=== PATIENT | male | born 1975 | race Caucasian/White ===

== ENCOUNTER 2017-07-14 17:16 | Emergency (ER) | payer SELFPAY ==
[2017-07-14] MEDS ORDERED: Ibuprofen 800 MG TAB ONE (17:40)
== END 2017-07-14 17:50 | disposition home or self-care (01) ==
LOC: ERS 17:16
DX: L72.9 Follicular cyst of the skin and subcutaneous tissue, unspecified (principal); F32.9 Major depressive disorder, single episode, unspecified; F17.210 Nicotine dependence, cigarettes, uncomplicated
CPT/HCPCS: 10060; 87070; 87205

== ENCOUNTER 2018-05-26 12:55 | Emergency (ER) | payer SELFPAY ==
[~2018-05-26 12:55] MED LIST: ISOVUE-370 76%-LOCM 1 ML ONE
[2018-05-26] MEDS ORDERED: Ketorolac Tromethamine 30 MG/ML VIAL ONE (13:48)
[2018-05-26 13:56] LABS: #Basophils 0.1 thou/uL (0.0-0.2); #Eosinphils 0.1 thou/uL (0.0-0.7); #Lymphocytes 2.7 thou/uL (1.20-3.40); #Monocytes 0.7 thou/uL (0.11-0.59); #Neutrophils 7.1 thou/uL (1.40-6.50); %Basophils 0.8 % (0.0-1.0); %Eosinophils 0.6 % (0.0-10.0); %Lymphocytes 25.2 % (21.0-51.0); %Monocytes 6.6 % (0.0-10.0); %Neutrophils 66.9 % (42.0-75.0); Hemoglobin 15.3 g/dL (14.0-18.0); Mean Corpuscular HGB CONC 32.1 g/dL (32.0-36.0); Mean Corpuscular Hemoglobin 30.5 pg (27.0-31.0); Mean Corpuscular Volume 95.1 fL (78.0-98.0); Mean Platelet Volume 6.6 fL (7.4-10.4); Platelet Count 268 thou/uL (130-400); RBC Distribution Width 12.7 % (11.5-14.5); Red Blood Cell (RBC) Count 5.02 mill/uL (4.70-6.10); White Blood Cell (WBC) Count 10.6 thou/uL (4.8-10.8)
[2018-05-26 14:19] LABS: ALT (SGPT) 32 U/L (8-55); AST (SGOT) 16 U/L (5-34); Albumin 4.3 g/dL (3.5-5.0); Alkaline Phosphatase 89 U/L (40-150); Anion Gap 12 mmol/L (10-20); BUN (Urea Nitrogen) 12 mg/dL (8.9-20.6); Bilirubin, Total 0.3 mg/dL (0.2-1.2); Calc. Creatinine Clearance 0 mL/min (70-130); Calcium 9.5 mg/dL (7.8-10.44); Carbon Dioxide 23 mmol/L (22-29); Chloride 106 mmol/L (98-107); Estimated GFR-MDRD Greater than 90; Globulin 2.8 g/dL (2.4-3.5); Glucose 146 mg/dL (70-105); Potassium 4.2 mmol/L (3.5-5.1); Protein, Total 7.1 g/dL (6.0-8.3); Sodium 137 mmol/L (136-145)
--- NOTE | 2018-05-26 14:35 | CT ---
Exam: CT face with contrast HISTORY: Dental pain in the right upper mouth. COMPARISON: None TECHNIQUE: Multiple contiguous axial images were obtained and a CT of the face with contrast. Sagitta l and coronal reformats were performed. FINDINGS: Upper lip soft tissue swelling is seen. No focal fluid collection is identified. The globes and retr obulbar soft tissues are unremarkable. No facial fractures are identified. Numerous dental caries are seen. Mucous retention cysts are seen in the right maxillary sinus. The other paranasal sinuses are well ae rated.. The mastoid air cells are hypoplastic. Visualized intracranial structures are unremarkable. IMPRESSION: No evidence of facial abscess.
[2018-05-26] MEDS ORDERED: Acetaminophen 500 MG TAB ONE (15:14)
== END 2018-05-26 15:23 | disposition home or self-care (01) ==
LOC: ERS 12:55
DX: L03.211 Cellulitis of face (principal); K02.9 Dental caries, unspecified; F17.210 Nicotine dependence, cigarettes, uncomplicated; F32.9 Major depressive disorder, single episode, unspecified; I10 Essential (primary) hypertension; Z79.899 Other long term (current) drug therapy
CPT/HCPCS: 36415; 70487; 80053; 85025; 96374; J1885; Q9966

== ENCOUNTER 2019-07-22 12:56 | Emergency (ER) | payer OTHER, SELFPAY | END 2019-07-22 13:50 | disposition home or self-care (01) | LOC: ERS 12:56 | DX: M79.10 Myalgia, unspecified site (principal); R11.0 Nausea; I10 Essential (primary) hypertension; Z20.828 Contact with and (suspected) exposure to other viral communicable diseases; F32.9 Major depressive disorder, single episode, unspecified; F17.210 Nicotine dependence, cigarettes, uncomplicated | CPT/HCPCS: 87635; 99283; U0003 ==

== ENCOUNTER 2019-08-03 20:55 | Inpatient (IN) | payer OTHER, SELFPAY ==
[2019-08-03] MEDS ORDERED: Nitroglycerin 2% Ointment 1 INCH/1 GM Packet ONE (21:16)
[2019-08-03] MEDS ORDERED: Aspirin Chewable 81 MG TAB ONE (21:16)
[2019-08-03 21:20] LABS: #Basophils 0.2 thou/uL (0.0-0.2); #Eosinphils 0.1 thou/uL (0.0-0.7); #Lymphocytes 3.2 thou/uL (1.20-3.40); #Monocytes 0.6 thou/uL (0.11-0.59); #Neutrophils 7.9 thou/uL (1.40-6.50); %Basophils 1.3 % (0.0-1.0); %Eosinophils 1.1 % (0.0-10.0); %Lymphocytes 27.1 % (21.0-51.0); %Neutrophils 65.5 % (42.0-75.0); Hemoglobin 17.3 g/dL (14.0-18.0); Mean Corpuscular HGB CONC 35.2 g/dL (32.0-36.0); Mean Corpuscular Hemoglobin 32.7 pg (27.0-31.0); Mean Corpuscular Volume 92.8 fL (78.0-98.0); Mean Platelet Volume 7.2 fL (7.4-10.4); Platelet Count 276 thou/uL (130-400); RBC Distribution Width 12.3 % (11.5-14.5); Red Blood Cell (RBC) Count 5.28 mill/uL (4.70-6.10)
[2019-08-03 21:58] LABS: ALT (SGPT) 37 U/L (8-55); AST (SGOT) 22 U/L (5-34); Albumin 4.4 g/dL (3.5-5.0); Alkaline Phosphatase 95 U/L (40-110); Anion Gap 14 mmol/L (10-20); BUN (Urea Nitrogen) 15 mg/dL (8.9-20.6); Bilirubin, Total 0.3 mg/dL (0.2-1.2); Calc. Creatinine Clearance 0 mL/min (70-130); Calcium 9.2 mg/dL (7.8-10.44); Carbon Dioxide 24 mmol/L (22-29); Chloride 104 mmol/L (98-107); Estimated GFR-MDRD 67; Globulin 3.7 g/dL (2.4-3.5); Glucose 153 mg/dL (70-105); Lipase 33 U/L (8-78); Potassium 4.2 mmol/L (3.5-5.1); Protein, Total 8.1 g/dL (6.0-8.3); Sodium 138 mmol/L (136-145)
[2019-08-04 01:31] LABS: Troponin I 0.022 ng/mL (< 0.028)
[2019-08-04] MEDS ORDERED: Acetaminophen 650 MG Suppository PR PRN (02:16)
[2019-08-04] MEDS ORDERED: Sodium Chloride 0.9% 1,000 ML IV SCH (02:30)
[2019-08-04] MEDS ORDERED: Morphine 2 MG/ML SYRINGE SLOW IVP SCH (02:30)
--- NOTE | 2019-08-04 03:31 | HP ---
TIME OF ASSESSMENT: 1100 hours. PRIMARY CARE PHYSICIAN: [facility]. CHIEF COMPLAINT: Chest pain. HISTORY OF PRESENT ILLNESS: Mr. Keller is a 43-year-old gentleman who presents to the emergency department due to concerns over chest "pressure feeling as though someone is sitting on my chest." The patient states this discomfort has been there since the beginning of the day yesterday. He denies noting if any worse with or without exertion. States it had been essentially constant throughout the entire day and persisted today. While he was at home earlier this evening, he states he suddenly had increased chest pressure, rating it a 6/10 in severity. He states he developed associated diaphoresis. Denies having any other symptoms. He went for a walk and initially felt better, however, suddenly he began to have persistence of vomiting. The vomiting settled and the pain has eased to a 3/10 in severity. He was encouraged by his to come into the ED for assessment. The patient states he has felt "off" since a week ago. States he came into the emergency department, but did not undergo any EKG workup. States at that time, he was experiencing the chest pressure, but it was not severe nor constant as it was today. States he was tested for COVID and discharged home. He has continued to feel "off" since then. He recalls experiencing numbness and tingling in the left hand earlier this evening when the pain had worsened, this has fully resolved. EMERGENCY DEPARTMENT COURSE: In the emergency department, he underwent an EKG that showed sinus tachycardia with a heart rate of 110 and the presence of a complete left bundle-branch block. It is unclear if he has had a left bundle-branch block performed as we do not have any prior EKGs to compare to. He was given 324 mg of aspirin as well as 1 L of normal saline and 1 inch of Nitro-Bid. His blood pressure was significantly elevated in the ED. On initial presentation, his blood pressure was 187/114 and last blood pressure checked at 0043, it was 163/110. Of note, the patient states that he has been off his blood pressure medications (he takes lisinopril 10 mg p.o. daily) for quite some time and just recently restarted it one week ago. States it did help him feel slightly better. LABORATORY STUDIES: Done in the ED showed a white count of 12, hemoglobin 17.3, hematocrit 49, platelets 276. Sodium 138, potassium 4.2, BUN 15, creatinine 1.18, GFR 67, glucose 153. LFTs unremarkable. Lipase normal. Initial troponin negative. BNP 132.3. Per ED, a chest x-ray was done and showed no acute changes. PAST MEDICAL HISTORY: 1. Hypertension. 2. Pancreatitis. 3. Remote history of heavy alcohol consumption. 4. Tobacco use. 5. Depression. PAST SURGICAL HISTORY: None. FAMILY HISTORY: Noncontributory. SOCIAL HISTORY: The patient states he currently smokes cigarettes. When he is very stressed, he tends to smoke up to 1 pack of cigarettes per day. Normally, he will smoke a half a pack. Reports occasional alcohol consumption. Denies any illicit drug use except he rarely smokes marijuana. PHYSICAL EXAMINATION: GENERAL: The patient appears well developed, well nourished, is in no acute distress. VITAL SIGNS: Temperature 98.9, pulse is 97, blood pressure 163/110, respirations 16, O2 saturation 97% on room air. HEENT: Normocephalic and atraumatic. Pupils are equal, round, and reactive to light. Sclerae are anicteric. Oropharynx is clear. NECK: Supple without lymphadenopathy. LUNGS: Clear to auscultation bilaterally without any wheezes, rales, or rhonchi. CARDIAC: Regular rate and rhythm without audible murmurs, rubs, or gallops. ABDOMEN: Soft, nontender, nondistended. Normoactive bowel sounds present. No guarding or rigidity. No renal angle tenderness. EXTREMITIES: No lower leg swelling or edema. NEUROLOGIC: Alert and oriented x3. SKIN: Warm and dry. INVESTIGATIONS: As best mentioned above in HPI. IMPRESSION AND PLAN: Mr. Keller is a 43-year-old gentleman who is being admitted for management of the following. 1. Acute coronary syndrome rule out. The patient reports persistent discomfort, rating 3/10 in severity. We will give morphine which should also help improve his blood pressure somewhat. Also add on nitroglycerin paste 1 inch q.8 hours. We will repeat EKG to assess for any dynamic changes. The patient will be admitted to telemetry for continuous cardiac monitoring. We will continue to trend troponins. We will continue daily aspirin. Echocardiogram ordered. If troponins remain negative, we will plan for stress test in the morning. Otherwise, we will add magnesium and TSH. Check lipid panel with morning labs. We will obtain a urine drug screen. We will keep patient n.p.o. 2. Hypertension. As mentioned above, the patient will be on nitroglycerin paste 1 inch q.8 hours, which should help improve his blood pressure. Continue to monitor blood pressure and resume home medications. 3. Gastrointestinal prophylaxis with famotidine. 4. Code status is full. His surrogate decision maker is his , Marlene Keller. 5. Deep venous thrombosis prophylaxis with mechanical SCDs. The patient's case discussed with Dr. Tate who agrees upon care as described above. Job ID: [id number]
[2019-08-04 04:31] LABS: #Basophils 0.1 thou/uL (0.0-0.2); #Eosinphils 0.2 thou/uL (0.0-0.7); #Lymphocytes 3.7 thou/uL (1.20-3.40); #Monocytes 0.5 thou/uL (0.11-0.59); #Neutrophils 4.7 thou/uL (1.40-6.50); %Basophils 0.8 % (0.0-1.0); %Eosinophils 1.7 % (0.0-10.0); %Lymphocytes 40.1 % (21.0-51.0); %Monocytes 5.6 % (0.0-10.0); %Neutrophils 51.8 % (42.0-75.0); Hemoglobin 15.9 g/dL (14.0-18.0); Mean Corpuscular HGB CONC 34.8 g/dL (32.0-36.0); Mean Corpuscular Hemoglobin 32.6 pg (27.0-31.0); Mean Corpuscular Volume 93.9 fL (78.0-98.0); Mean Platelet Volume 7.1 fL (7.4-10.4); Platelet Count 233 thou/uL (130-400); RBC Distribution Width 12.3 % (11.5-14.5); Red Blood Cell (RBC) Count 4.88 mill/uL (4.70-6.10); White Blood Cell (WBC) Count 9.1 thou/uL (4.8-10.8)
[2019-08-04 05:27] LABS: Anion Gap 11 mmol/L (10-20); BUN (Urea Nitrogen) 14 mg/dL (8.9-20.6); Calc. Creatinine Clearance 174 mL/min (70-130); Calcium 8.9 mg/dL (7.8-10.44); Carbon Dioxide 24 mmol/L (22-29); Cardiac Risk 7.2 (Less than 4.5); Chloride 107 mmol/L (98-107); Cholesterol 229 mg/dl (< 200 Desired); Estimated GFR-MDRD 88; Glucose 122 mg/dL (70-105); HDL Cholesterol 32 mg/dL (>60 Neg Risk); LDL Cholesterol, Calculated 131 mg/dL; Sodium 138 mmol/L (136-145); Triglycerides 332 mg/dL (Less than 150)
[2019-08-04 05:43] LABS: CKMB 2.6 ng/mL (0-6.6)
[2019-08-04] MEDS ORDERED: Nitroglycerin 2% Ointment 1 INCH/1 GM Packet TOP SCH (06:00)
[2019-08-04 06:32] LABS: Amphetamine Not Detected (NotDetected); Barbiturates Screen Not Detected (NotDetected); Benzodiazepine Screen Not Detected (NotDetected); Cocaine Metabolite Screen Not Detected (NotDetected); Medtox Control Line Valid? VALID (VALID); Medtox Reader # READER 4; Methadone Not Detected (NotDetected); Methamphetamine Not Detected (NotDetected); Opiate Screen Detected (NotDetected); Oxycodone Screen Not Detected (NotDetected); Phencyclidine (PCP) Not Detected (NotDetected); THC/Cannabinoid Screen Not Detected (NotDetected); Tricyclic Screen Not Detected (NotDetected)
--- NOTE | 2019-08-04 07:49 | RAD ---
PORTABLE CHEST: History: Patient was tested for Covid two weeks ago and has been becoming increasingly short of breat h. Comparison: 04-25-16 FINDINGS: Heart size appears borderline enlarged considering the lordotic technique. Lungs are clear of any inf iltrative process. No signs of failure. IMPRESSION: Borderline heart size. POS: [facility]
[2019-08-04] MEDS: Aspirin 325 mg Enteric Coated Tablet PO SCH (09:11)
[2019-08-04] MEDS: Famotidine/PF 20 mg/2ml Vial SLOW IVP SCH ×2 (09:11→09:18)
[2019-08-04] MEDS ORDERED: Iopamidol 370 76% 100 ML VIAL ONE (09:18)
[2019-08-04] MEDS: Acetaminophen 325 MG TAB PO PRN (09:29)
[2019-08-04] MEDS: Morphine 2 MG/ML SYRINGE SLOW IVP PRN (10:52)
[2019-08-04] MEDS ORDERED: Nitroglycerin 0.4 MG TAB (25 Tab Bottle) PO PRN (11:38)
[2019-08-04] MEDS ORDERED: Lisinopril 10 MG TAB PO SCH (13:00)
--- NOTE | 2019-08-04 13:06 | CON ---
DATE OF CONSULTATION: HISTORY OF PRESENT ILLNESS: The patient is a 43-year-old gentleman, who presented for evaluation of chest discomfort and dyspnea. The patient has previous history of hypertension. The patient states he has been out of his medications recently. He went to the emergency room a few weeks ago being thought for evaluation of dyspnea. He was noted to be markedly hypertensive. He was restarted on his lisinopril. The patient states states a few days ago he started having midsternal chest discomfort. This has been a fairly persistent discomfort for the past three days. He came to the emergency room and is noted to be markedly hypertensive. The patient also reports being mildly dyspneic. The patient denies having PND or orthopnea. PAST MEDICAL HISTORY: 1. Hypertension. 2. COPD. 3. Pancreatitis. PAST SURGICAL HISTORY: None. MEDICATIONS: Lisinopril 10 daily. SOCIAL HISTORY: Long history of tobacco abuse. ALLERGIES: HE HAS NO KNOWN DRUG ALLERGIES. REVIEW OF SYSTEMS: Ten-point system, otherwise unremarkable. PHYSICAL EXAMINATION: GENERAL: This is an obese gentleman, in mild distress. VITAL SIGNS: Blood pressure 144/90. NECK: Showed no jugular venous distention. LUNGS: Clear to auscultation. HEART: Regular rate and rhythm. Normal S1 and S2. No murmurs. ABDOMEN: Nondistended. EXTREMITIES: Showed no edema. VASCULAR: Radial pulses are 2+. LABORATORY DATA: Sodium 138, potassium 4.0, chloride 107, bicarbonate 24, BUN 14, creatinine 0.94, and glucose 122. Troponin 0.04. White blood cell count is 9.1 , hemoglobin 15.9, hematocrit 45.8, and platelets are 233. IMAGING DATA: EKG sinus tachycardia with a left bundle-branch block. IMPRESSION: 1. Chest pain. 2. Malignant hypertension. 3. Left bundle-branch block. 4. Tobacco abuse. 5. History of ethanol abuse. 6. Obesity. PLAN: This gentleman presents with chest pain and is markedly hypertensive. His documented systolic blood pressure over 200. The patient does have a left bundle-branch block. He will need to undergo an echocardiogram and adenosine stress test to evaluate for ischemia. The patient needs to have improved control of his hypertension and close followup. The patient had been highly advised to discontinue smoking. We will follow this patient with you through his hospitalization. Job ID: [id number] [facility]
[2019-08-04] MEDS ORDERED: Communication Order-Pharmacy FS SCH (13:15)
[2019-08-04] MEDS ORDERED: Diazepam 5 MG TAB PO SCH (13:45)
[2019-08-04] MEDS ORDERED: Midazolam HCl 2 mg/2 ml Vial ONE (15:06)
[2019-08-04] MEDS ORDERED: Sodium Chloride 0.9% 200 ML IV PRN (15:23)
[2019-08-04] MEDS ORDERED: Nitroglycerin 0.4 MG TAB (25 Tab Bottle) SL PRN (15:23)
[2019-08-04] MEDS: Carvedilol 3.125 MG TAB PO SCH (16:34)
[2019-08-04] MEDS: Acetaminophen/Codeine 30-300mg Tablet PO PRN ×2 (16:35→21:17)
[2019-08-04] MEDS: Lisinopril 10 MG TAB PO SCH (21:17)
[2019-08-04] MEDS: Atorvastatin Calcium 20 MG TAB PO SCH (21:18)
[2019-08-05] MEDS: Carvedilol 3.125 MG TAB PO SCH (08:44)
[2019-08-05] MEDS: Spironolactone 25 MG TAB PO SCH (08:44)
[2019-08-05] MEDS: Aspirin 325 mg Enteric Coated Tablet PO SCH (08:44)
[2019-08-05] MEDS: Famotidine/PF 20 mg/2ml Vial SLOW IVP SCH (08:45)
[2019-08-05] MEDS: Lisinopril 10 MG TAB PO SCH (08:45)
[2019-08-05] MEDS: Acetaminophen/Codeine 30-300mg Tablet PO PRN ×3 (08:58→20:40)
[2019-08-05] MEDS ORDERED: Carvedilol 3.125 MG TAB PO SCH ×2 (09:46→10:30)
[2019-08-05] MEDS ORDERED: Lisinopril 10 MG TAB PO SCH ×2 (09:46→10:30)
[2019-08-05] MEDS ORDERED: Carvedilol 6.25 MG TAB PO SCH (10:00)
[2019-08-05] MEDS ORDERED: Lisinopril 20 MG TAB PO SCH (10:00)
[2019-08-05] MEDS: Carvedilol 6.25 MG TAB PO SCH (16:56)
[2019-08-05] MEDS: Morphine 2 MG/ML SYRINGE SLOW IVP PRN ×2 (17:06→22:16)
--- NOTE | 2019-08-05 18:51 | PRG ---
DATE OF SERVICE: 08/05/2019 SUBJECTIVE: The patient is a 43-year-old male with hypertension, presented to the emergency room with chest discomfort. He was found to have a left bundle-branch block with indeterminate troponins. The patient was evaluated by Cardiology, who recommended a cardiac catheterization. The cardiac catheterization done yesterday showed 20% lesion in the mid LAD, otherwise all other vessels were normal. He was also found to have significant dyslipidemia with triglycerides 332, cholesterol 229, LDL of 131. His ejection fraction was 20%. He denies any new complaints at this time. He had some chest discomfort earlier without any nausea or diaphoresis. REVIEW OF SYSTEMS: All other review of systems was reviewed and were found negative. PHYSICAL EXAMINATION: VITAL SIGNS: Temperature 98.2, pulse of 80, respirations of 16, blood pressure 113/62 with O2 saturations 98% on room air. GENERAL: A 43-year-old male, in no apparent distress. LUNGS: Clear to auscultation bilaterally. No wheezing, rales, or rhonchi. HEART: S1 and S2 present. Regular rate and rhythm. No rubs or gallops. ABDOMEN: Soft. Bowel sounds present. EXTREMITIES: No edema or calf tenderness. NEUROLOGIC: Grossly nonfocal. LABORATORY FINDINGS: BUN 14 and creatinine 0.94. Troponin maximum was 0.040. IMPRESSION: 1. Chest discomfort, acute coronary syndrome ruled out. 2. Hypertensive urgency. 3. New onset cardiomyopathy with ejection fraction of 20%. 4. Left bundle-branch block. 5. Tobacco dependence. 6. History of alcohol abuse. 7. Obesity with a BMI of 33.5. 8. Chronic kidney disease stage 2. 9. Dyslipidemia. PLAN: The patient appears to be euvolemic at this time. We will continue statins. Lower aspirin to 81 mg daily. The patient has been started on beta blockers and CHARO inhibitor. Aldactone was also started. We will recheck labs in a.m. Echocardiogram is pending at this time. The patient was extensively counseled on congestive heart failure. We will consult Cardiovascular Team for further education. LifeVest will be arranged. The patient stated understanding. Job ID: [id number]
--- NOTE | 2019-08-05 19:28 | ULT ---
RIGHT GROIN ULTRASOUND: 08/05/19 HISTORY: Heart cath done yesterday with right groin pain today. Real time imaging of the area of concern does not show any signs of hematoma or pseudoaneurysm. An in guinal node is incidentally noted. IMPRESSION: Unremarkable right groin ultrasound. POS: [facility]
[2019-08-05] MEDS: Atorvastatin Calcium 20 MG TAB PO SCH (20:40)
[2019-08-05] MEDS: Lisinopril 20 MG TAB PO SCH (20:41)
[2019-08-06] MEDS: Acetaminophen 325 MG TAB PO PRN (04:42)
[2019-08-06 05:08] LABS: Anion Gap 11 mmol/L (10-20); Calc. Creatinine Clearance 162 mL/min (70-130); Calcium 8.8 mg/dL (7.8-10.44); Carbon Dioxide 22 mmol/L (22-29); Chloride 106 mmol/L (98-107); Estimated GFR-MDRD 83; Glucose 157 mg/dL (70-105); Magnesium 2.1 mg/dL (1.6-2.6); Sodium 135 mmol/L (136-145)
[2019-08-06 05:11] LABS: BUN (Urea Nitrogen) 13 mg/dL (8.9-20.6)
[2019-08-06] MEDS: Spironolactone 25 MG TAB PO SCH (08:10)
[2019-08-06] MEDS: Lisinopril 20 MG TAB PO SCH (08:10)
[2019-08-06] MEDS: Carvedilol 6.25 MG TAB PO SCH (08:10)
[2019-08-06] MEDS ORDERED: Aspirin 81 mg Enteric Coated Tablet PO SCH (09:00)
[2019-08-06 12:27] VITALS: BP 143/74; TEMP 98
[2019-08-06] MEDS: Acetaminophen/Codeine 30-300mg Tablet PO PRN (14:13)
--- NOTE | 2019-08-06 18:11 | DIS ---
DATE OF ADMISSION: 08/04/2019 DATE OF DISCHARGE: 08/06/2019 DISCHARGE DISPOSITION: Home. FOLLOWUP: 1. Follow up with primary care physician at [facility] in 1 week. 2. Follow up with Dr. Brock Amador in 2 weeks. 3. Follow up with [facility]. 4. Basic metabolic profile after 2 weeks is recommended, primary care physician advised to follow. The patient was seen and examined on the day of discharge. Denies any new complaints. No chest pain, shortness of breath, or palpitations reported. DISCHARGE MEDICATIONS: 1. Aspirin 81 mg daily. 2. Lipitor 20 mg at bedtime. 3. Carvedilol 6.25 mg b.i.d. 4. Lisinopril 20 mg b.i.d. 5. Aldactone 25 mg daily. BRIEF HOSPITAL COURSE: The patient is a 43-year-old male with hypertension, presented to the emergency room with chest discomfort. His initial EKG showed left bundle-branch block with indeterminate troponins. The patient was evaluated by Cardiology. A cardiac catheterization was performed that showed 20% lesion in the mid LAD with ejection fraction of 20%. He has been started on beta blockers along with CHARO inhibitor. Echocardiogram was done, report is pending at the time of discharge. The patient was extensively counseled on congestive heart failure. He has been cleared by Cardiology for discharge. LifeVest has been arranged. FINAL DIAGNOSES: 1. Noncardiac chest pain. Acute coronary syndrome ruled out. 2. Hypertensive urgency on admission, improved. 3. New onset systolic heart failure with ejection fraction of 20%, secondary to nonischemic cardiomyopathy. 4. Left bundle-branch block. 5. Tobacco dependence, counseled. 6. History of alcohol abuse, counseled. 7. Obesity with a BMI of 33.5. 8. Chronic kidney disease, stage 2. 9. Dyslipidemia. 10. Hyponatremia. SIGNIFICANT LABORATORY DATA: Fasting lipid profile showed triglyceride 332, cholesterol 229, LDL 131, HDL of 32. TSH was 1.4. Job ID: [id number]
--- NOTE | 2019-08-08 17:30 | EKG ---
Test Reason : Blood Pressure : / mmHG Vent. Rate : 110 BPM Atrial Rate : 110 BPM P-R Int : 142 ms QRS Dur : 152 ms QT Int : 378 ms P-R-T Axes : 060 054 227 degrees QTc Int : 511 ms Sinus tachycardia Left bundle branch block Abnormal ECG Confirmed by KIANA SMITH M.D. ([id number]), television news video editor ADELE MCCORMICK ([id number]) on 08/08/2019 5:29:49 PM Referred By: Confirmed By:KIANA SMITH M.D.
--- NOTE | 2019-08-09 03:03 | PQF ---
SCOTT CHE MALIK MD [id number] CLINICAL DOCUMENTATION CLARIFICATION FORM: POST DISCHARGE Addendum to original discharge summary date: ____ Late entry note date: __ DATE: 08/09/2019 ATTN: Raphael Swanson Please exercise your independent, professional judgment in responding to the clarification form. Clinical indicators are provided on the bottom of this form for your review Please check appropriate box(s): SYSTOLIC HEART FAILURE: ACUITY [ ] Acute [ ] Acute on Chronic [ x ] Chronic [ ] Other diagnosis [ ] Unable to determine In addition, please specify: Present on Admission (POA): [ x ] Yes [ ] No [ ] Unable to determine For continuity of documentation, please document condition throughout progress notes and discharge summary. Thank You. CLINICAL INDICATORS - SIGNS / SYMPTOMS / LABS BNP is 132.3 on 08/02 - Laboratory New onset systolic heart failure with ejection fraction of 20% secondary to nonischemic cardiomyopathy - Discharge summary The patient was extensively counseled on congestive heart failure - Discharge summary RISKS: Hypertensive urgency, nonischemic cardiomyopathy, left bundle branch block, CKD 2, dyslipidemia, etc.,- Discharge summary TREATMENTS: Coreg 6.25 mg PO 08/03 to 08/04 - Medications LiveVest has been arranged - Discharge summary Extensively counseled on CHF - Discharge summary (This form is maintained as a part of the permanent medical record) 2014 [employer] All Rights Reserved Louis [email or web address]
== END 2019-08-06 15:30 | disposition home or self-care (01) | DRG 287 ==
LOC: ERS 20:55 → OBSVTOIN 08-04 02:31 → 2NO 08-04 02:31
PROVIDERS: ADMIT Internal Medicine; ATTEND Internal Medicine
PROC: 4A023N7 Measurement of Cardiac Sampling and Pressure, Left Heart, Percutaneous Approach (ICD-10-PCS; principal; 2019-08-04)
PROC: B2111ZZ Fluoroscopy of Multiple Coronary Arteries using Low Osmolar Contrast (ICD-10-PCS; 2019-08-04)
DX: R07.89 Other chest pain (principal); I42.8 Other cardiomyopathies; E87.1 Hypo-osmolality and hyponatremia; I50.22 Chronic systolic (congestive) heart failure; F32.9 Major depressive disorder, single episode, unspecified; F17.210 Nicotine dependence, cigarettes, uncomplicated; J44.9 Chronic obstructive pulmonary disease, unspecified; I44.7 Left bundle-branch block, unspecified; F10.11 Alcohol abuse, in remission; E66.9 Obesity, unspecified; I16.0 Hypertensive urgency; E78.5 Hyperlipidemia, unspecified; I12.9 Hypertensive chronic kidney disease with stage 1 through stage 4 chronic kidney disease, or unspecified chronic kidney disease; N18.2 Chronic kidney disease, stage 2 (mild); Z68.32 Body mass index [BMI] 32.0-32.9, adult
CPT/HCPCS: 36415; 71045; 80048; 80053; 80061; 80306; 82553; 83690; 83735; 83880; 84443; 84484; 85025; 90471; 90732; 93005; 93306; 93458; 93926; 94760; 96360; 96361; 96374; 96375; 96376; 97139; 99152; G0009; G0378; J1644; J2250; J2270; Q9967; S0028

== ENCOUNTER 2019-10-27 11:04 | Emergency (ER) | payer OTHER, SELFPAY ==
[2019-10-27 16:42] LABS: SARS-CoV-2 MS2 Positive; SARS-CoV-2 N Gene Negative; SARS-CoV-2 S Gene Negative; SARS-CoV-2 by NAA Not Detected (NotDetected); SARS-CoV-2 orf1ab Negative
== END 2019-10-27 11:29 | disposition home or self-care (01) ==
LOC: ERS 11:04
DX: R19.7 Diarrhea, unspecified (principal); Z20.828 Contact with and (suspected) exposure to other viral communicable diseases; I11.0 Hypertensive heart disease with heart failure; I50.9 Heart failure, unspecified; F32.9 Major depressive disorder, single episode, unspecified; F17.210 Nicotine dependence, cigarettes, uncomplicated
CPT/HCPCS: 87635; 99283; U0003

== ENCOUNTER 2020-03-19 23:20 | Inpatient (IN) | payer SELFPAY ==
[2020-03-19] MEDS ORDERED: EPINEPHrine 4 MG in Dextrose 5% in Water 250 ML IV SCH (23:45)
[2020-03-19 23:48] LABS: Hemoglobin 16.4 g/dL (14.0-18.0); Mean Corpuscular HGB CONC 33.6 g/dL (32.0-36.0); Mean Corpuscular Hemoglobin 32.1 pg (27.0-31.0); Mean Corpuscular Volume 95.4 fL (78.0-98.0); Mean Platelet Volume 7.6 fL (7.4-10.4); Platelet Count 177 thou/uL (130-400); RBC Distribution Width 12.5 % (11.5-14.5)
[2020-03-19 23:49] LABS: INR-International Normal Ratio 1.1; PTT 32.2 sec (22.9-36.1)
[2020-03-19] MEDS ORDERED: Propofol 1,000 MG/100 ML VIAL IV ONE (23:56)
[2020-03-19 23:57] LABS: ALT (SGPT) 238 U/L (8-55); AST (SGOT) 178 U/L (5-34); Alkaline Phosphatase 114 U/L (40-110); Anion Gap 27 mmol/L (10-20); BUN (Urea Nitrogen) 13 mg/dL (8.9-20.6); Bilirubin, Total 0.3 mg/dL (0.2-1.2); Calc. Creatinine Clearance 0 mL/min (70-130); Calcium 9.2 mg/dL (7.8-10.44); Carbon Dioxide 21 mmol/L (22-29); Chloride 98 mmol/L (98-107); Globulin 2.9 g/dL (2.4-3.5); Glucose 326 mg/dL (70-105); Protein, Total 6.9 g/dL (6.0-8.3); Sodium 143 mmol/L (136-145)
[2020-03-20 00:02] LABS: Potassium 2.8 mmol/L (3.5-5.1)
[2020-03-20] MEDS ORDERED: Furosemide 40 MG/4 ML VIAL ONE (00:03)
[2020-03-20 00:17] LABS: CKMB 2.1 ng/mL (0-6.6)
[2020-03-20 00:26] LABS: Actual Bicarbonate (HCO3a) 15.1 mEq/L (22-28); Base Excess (BEa) -15.6 mEq/L (-2.0 to +3.0); CO2 Tension 54.3 mmHg (35.0-45.0); Calcium, Ionized (arterial) 1.24 mmol/L (1.12-1.30); Carboxyhemoglobin (COHb) 1.5 gm% (0.0-3.0); Hemoglobin (Hb) 17.3 g/dL (14.0-18.0); O2 Tension (PaO2), arterial 64.4 mmHg (80.0-100.0); Potassium - ABG Lab 2.81 mmol/L (3.70-5.30)
--- NOTE | 2020-03-20 00:26 | RAD ---
RADIOGRAPH CHEST 1 VIEW: DATE: 03/19/2020 TIME: 11:47 PM HISTORY: 44-year-old male status post intubation COMPARISON: 08/03/2019 FINDINGS: Supine image which is relatively insensitive for pneumothorax detection. New Endotracheal tube distal tip at mid thoracic trachea. Esophageal catheter, new. Distal portion below diaphragm Borderline or mild cardiomegaly. New alveolar infiltrates throughout right upper lobe, and right medial mid and lower lung zones. Retrocardiac medial left lower lobe alveolar infiltrate. Mild haziness left upper lobe. IMPRESSION: 1) bilateral infiltrates, right worse than left. 2) status post intubation with endotracheal tube and esophagogastric tube.
[2020-03-20 00:33] LABS: Band 4 % (5-11); Eosinophils 1 % (0-10); Lymphocytes 36 % (21-51); MDiff Complete? YES; Metamyelocyte 3 % (0-0); Monocytes 1 % (0-10); Myelocyte 1 % (0-0); Neutrophil 30 % (42-75); Platelet Morphology Comment Appears Adequate; Reactive Lymphocytes 23 % (0-10)
[2020-03-20 00:43] LABS: pH, Arterial 7.06 (7.35-7.45)
[2020-03-20 00:44] LABS: ALV-art Gradient 580.725 mmHg (0-20); Puncture Site RRA
[2020-03-20] MEDS ORDERED: Fentanyl CADD 100 ML IV SCH (01:00)
[2020-03-20 01:32] LABS: SARS-CoV-2 NAA Rapid Test Not Detected (NotDetected)
--- NOTE | 2020-03-20 02:22 | PDOC.HHP ---
Hospitalist HPI Status post cardiac arrest History of Present Illness: 44-year-old male with past medical history of hypertension, diabetes mellitus, low EF systolic CHF with reported ejection fraction of 20% on last echo, follows with cardiology Dr. Amador, previously on LifeVest since the last 6 months but nonadherent noncompliant due to insurance issue. Recently recommended to have an AICD and scheduled for next week. Patient apparently developed sudden cessation of breathing and loss of consciousness after returning from the back to his hotel room today. Event was witnessed by the spouse who was started CPR 2 minutes into event. She reported that she has noticed patient was initially snoring and then later stopped breathing and every attempt to arouse him was for tach and she had called 911 and started CPR. On arrival of EMS he was noted to be in V. fib and had multiple rounds of cardiac shock and CPR. On arrival in the ER he was still pulseless and he had to rounds of shocks with CPR lasting about 30 minutes before return to spontaneous circulation. Patient was started on amiodarone drip and his blood pressure has remained steady since the last 1 hour. Spouse reports still current alcohol use as well as chronic tobacco use. No recent fever or chills. Patient is currently intubated and unable to give further history Allergies/Adverse Reactions: Allergy/AdvReac Type Severity Reaction Status Date / Time No Known Drug Allergies Allergy Verified 08/04/19 03:51 Home Medications: Medication Instructions Recorded Confirmed Type Aspirin [Ecotrin Low Strength] 81 mg PO DAILY tab 08/06/19 Rx Atorvastatin Calcium [Lipitor] 20 mg PO HS #30 tab 08/06/19 Rx Carvedilol [Coreg] 6.25 mg PO BID-WM #60 tab 08/06/19 Rx Lisinopril [Zestril] 20 mg PO BID #60 tab 08/06/19 Rx Spironolactone [Aldactone] 25 mg PO QAM-WM #30 tab 08/06/19 Rx Past History: PMHx: PSHx: FHx: Social: Hospitalist HPI ROS ROS unobtainable: due to mental status Hospitalist Exam General Appearance: ill appearing General - other findings: Middle-aged male, orally tube, on vent, FiO2 of 100% Eye: PERRL, anicteric sclera Eye - other findings: Mild periorbital edema ENT: normocephalic atraumatic, no oropharyngeal lesions Neck: supple, no JVD Heart: RRR, II/IV Respiratory: no ronchi, normal chest expansion Gastrointestinal: soft, non-tender, non-distended Extremities: no cyanosis, no clubbing Skin: normal turgor, no lesions Neurological - other findings: sedated Hospitalist Results Result Diagrams: 03/19/20 23:29 03/19/20 23:29 Lab results: Laboratory Last Values WBC 21.0 thou/uL (4.8-10.8) H 03/19/20 23:29 RBC 5.10 mill/uL (4.70-6.10) 03/19/20 23: Hgb 16.4 g/dL (14.0-18.0) 03/19/20 23: Hct 48.6 % (42.0-52.0) 03/19/20 23: MCV 95.4 fL (78.0-98.0) 03/19/20 23: MCH 32.1 pg (27.0-31.0) H 03/19/20 23: MCHC 33.6 g/dL (32.0-36.0) 03/19/20 23: RDW 12.5 % (11.5-14.5) 03/19/20 23: Plt Count 177 thou/uL (130-400) 03/19/20 23: MPV 7.6 fL (7.4-10.4) 03/19/20 23:29 Neutrophils % (Manual) 30 % (42-75) L 03/19/20 23:29 Band Neuts % (Manual) 4 % (5-11) L 03/19/20 23:29 Lymphocytes % (Manual) 36 % (21-51) 03/19/20 23:29 Reactive Lymphs % 23 % (0-10) H 03/19/20 23:29 Monocytes % (Manual) 1 % (0-10) 03/19/20 23:29 Eosinophils % (Manual) 1 % (0-10) 03/19/20 23:29 Basophils % (Manual) 1 % (0-2) 03/19/20 23:29 Metamyelocytes % (Man) 3 % (0-0) H 03/19/20 23:29 Myelocytes % 1 % (0-0) H 03/19/20 23:29 Lymphocytes # Not Reportable 03/19/20 23: Plt Morphology Comment Appears Adequate 03/19/20 23: PT 14.0 sec (12.0-14.7) 03/19/20 23: INR 1.1 03/19/20 23: APTT 32.2 sec (22.9-36.1) 03/19/20 23: Specimen Type ARTERIAL 03/20/20 00: Puncture Site RRA 03/20/20 00: Bicarbonate Actual 15.1 mEq/L (22-28) L 03/20/20 00: ABG pH 7.06 (7.35-7.45) L* 03/20/20 00: ABG pCO2 54.3 mmHg (35.0-45.0) H 03/20/20 00: ABG pO2 64.4 mmHg (80.0-100.0) L 03/20/20 00: ABG O2 Sat (Measured) 82.4 % (94.0-98.0) L* 03/20/20 00: ABG O2 Content 19.7 vol% (18.0-21.0) 03/20/20 00: ABG Base Excess -15.6 mEq/L (-2.0 to +3.0) L 03/20/20 00: ABG Hematocrit 51.0 % (42.0-52.0) 03/20/20 00: ABG Hemoglobin 17.3 g/dL (14.0-18.0) 03/20/20 00: ABG Oxyhemoglobin 80.9 % (94.0-98.0) L 03/20/20 00: ABG Carboxyhemoglobin 1.5 gm% (0.0-3.0) 03/20/20 00: ABG Methemoglobin 0.30 gm% (0.04-1.52) 03/20/20 00: ABG Deoxyhemoglobin 17.3 % (0.0-2.9) H 03/20/20 00: Vladimir Test NOT DONE 03/20/20 00: A-a O2 Gradient 580.725 mmHg (0-20) H 03/20/20 00:22 Sodium 142 mmol/L (135-148) 03/20/20 00:22 Potassium 2.81 mmol/L (3.70-5.30) L 03/20/20 00:22 Chloride 104 mmol/L (98-106) 03/20/20 00:22 Ionized Calcium 1.24 mmol/L (1.12-1.30) 03/20/20 00:22 Mode of Support SIMV 03/20/20 00:22 Mechanical Rate 20 min 03/20/20 00:22 Inspired O2 100 % 03/20/20 00:22 Tidal Volume 500 ml 03/20/20 00:22 Pressure Support 10 cmH2O 03/20/20 00:22 PEEP or CPAP 10.0 cmH2O 03/20/20 00:22 Sodium 143 mmol/L (136-145) 03/19/20 23:29 Potassium 2.8 mmol/L (3.5-5.1) L* 03/19/20 23:29 Chloride 98 mmol/L (98-107) 03/19/20 23:29 Carbon Dioxide 21 mmol/L (22-29) L 03/19/20 23:29 Anion Gap 27 mmol/L (10-20) H 03/19/20 23:29 BUN 13 mg/dL (8.9-20.6) 03/19/20 23:29 Creatinine 1.55 mg/dL (0.7-1.3) H 03/19/20 23:29 Estimated GFR (MDRD) 49 03/19/20 23:29 Glucose 326 mg/dL (70-105) H 03/19/20 23:29 Lactic Acid 12.3 mmol/L (0.5-2.2) H* 03/19/20 23:29 Calcium 9.2 mg/dL (7.8-10.44) 03/19/20 23:29 Total Bilirubin 0.3 mg/dL (0.2-1.2) 03/19/20 23:29 AST 178 U/L (5-34) H 03/19/20 23:29 ALT 238 U/L (8-55) H 03/19/20 23:29 Alkaline Phosphatase 114 U/L (40-110) H 03/19/20 23:29 Creatine Kinase 153 U/L (30-200) 03/19/20 23:29 CK-MB (CK-2) 2.1 ng/mL (0-6.6) 03/19/20 23:29 Troponin I 0.064 ng/mL (< 0.028) H 03/19/20 23:29 B-Natriuretic Peptide 191.1 pg/mL (0-100) H 03/19/20 23:29 Serum Total Protein 6.9 g/dL (6.0-8.3) 03/19/20 23:29 Albumin 4.0 g/dL (3.5-5.0) 03/19/20 23:29 Globulin 2.9 g/dL (2.4-3.5) 03/19/20 23:29 Albumin/Globulin Ratio 1.4 g/dL (1.2-2.2) 03/19/20 23:29 SARS-CoV-2 Rap RNA(RT-PCR) Not Detected (NotDetected) 03/19/20 23:58 Chest x-ray Additional Comments: Bilateral infiltrates Hospitalist H&P A/P (1) Cardiac arrest Code(s): I46.9 - CARDIAC ARREST, CAUSE UNSPECIFIED Status: Acute (2) V-tach Code(s): I47.2 - VENTRICULAR TACHYCARDIA Status: Acute (3) Hypokalemia Code(s): E87.6 - HYPOKALEMIA Status: Acute (4) ARF (acute renal failure) Status: Acute (5) Systolic and diastolic CHF w/reduced LV function, NYHA class 4 Code(s): I50.40 - UNSP COMBINED SYSTOLIC AND DIASTOLIC (CONGESTIVE) HRT FAIL Status: Acute (6) AA (alcohol abuse) Code(s): F10.10 - ALCOHOL ABUSE, UNCOMPLICATED Status: Acute (7) Tobacco abuse Code(s): Z72.0 - TOBACCO USE Status: Acute Plan: #Status post cardiac arrestlikely due to cardiac arrhythmia Will obtain magnesium level We will replete potassium Continue amiodarone drip Continue to monitor blood pressure To consult cardiology for possible need for AICD/PPM while inpatient Admit to ICU Start cooling protocol -Initiate IV Levophed as needed #Hypokalemialikely due to diuretic use Follow magnesium Replete with total of 100 mEq now, restart gait to greater than 4 #History of systolic CHF2 serial sets of cardiac enzymes Follow cardiology #Bilateral pneumoniamay be due to aspiration Obtain sputum for culture etc. Start empiric antibiotics #Leukocytosis with elevated lactic acidrule out sepsis Obtain blood culture Start empirical Zosyn May be due to aspiration pneumonitis Dose Vanco x1 now #Diabetes mellitus type 2 insulin sliding scale with Accu-Cheks every 6 #Chronic tobacco usewe discussed smoking cessation when more awake #Acute respiratory failureICU protocol Of pulmonary to follow in a.m. Continue vent management #Dispositiongreater than 48 hours, admit to inpatient status
[2020-03-20] MEDS ORDERED: Dextrose 50% Abboject 50 ML SYRINGE SLOW IVP PRN (02:29)
[2020-03-20] MEDS ORDERED: Dextrose 5% in Water 1,000 ML IV PRN (02:29)
[2020-03-20] MEDS ORDERED: Ondansetron PF 4 MG/2 ML Vial IVP PRN (02:29)
[2020-03-20] MEDS ORDERED: Acetaminophen 325 MG TAB PO PRN (02:29)
[2020-03-20] MEDS ORDERED: Lorazepam 2 MG/ML VIAL SLOW IVP PRN (02:30)
[2020-03-20] MEDS ORDERED: Propofol BOLUS 1,000 MG/100 ML VIAL IV PRN (02:30)
[2020-03-20] MEDS ORDERED: Morphine 2 MG/ML VIAL SLOW IVP PRN (02:30)
[2020-03-20] MEDS ORDERED: DISCONTINUE PREVIOUS NARCOTIC PAIN MEDICATIONS AND BENZODIAZEPINES FS SCH (02:30)
[2020-03-20] MEDS ORDERED: Fentanyl BOLUS 250 ML IVPB PRN (02:30)
[2020-03-20 02:44] VITALS: BMI 38.2
[2020-03-20] MEDS ORDERED: Magnesium 2 GM/50 ML 2 GM in Premix Bag 1 BAG IVPB SCH (03:00)
[2020-03-20] MEDS ORDERED: Potassium Chloride 40 MEQ in Premix Bag 1 BAG IVPB SCH (03:00)
[2020-03-20 03:23] LABS: Actual Bicarbonate (HCO3a) 18.4 mEq/L (22-28); Base Excess (BEa) -12.7 mEq/L (-2.0 to +3.0); Calcium, Ionized (arterial) 1.24 mmol/L (1.12-1.30); Carboxyhemoglobin (COHb) 1.1 gm% (0.0-3.0); Hemoglobin (Hb) 18.5 g/dL (14.0-18.0)
[2020-03-20 03:25] LABS: CO2 Tension 62.6 mmHg (35.0-45.0); pH, Arterial 7.09 (7.35-7.45)
[2020-03-20 03:33] LABS: Creatinine, Urine 30.41 mg/dL (63-166)
[2020-03-20 03:36] LABS: Band 18 % (5-11); Lymphocytes 16 % (21-51); MDiff Complete? YES; Mean Corpuscular HGB CONC 32.9 g/dL (32.0-36.0); Mean Corpuscular Hemoglobin 31.5 pg (27.0-31.0); Mean Corpuscular Volume 95.9 fL (78.0-98.0); Mean Platelet Volume 8.1 fL (7.4-10.4); Monocytes 6 % (0-10); Neutrophil 60 % (42-75); Platelet Clumps SLIGHT; Platelet Count 169 thou/uL (130-400); Platelet Morphology Comment Appears Adequate; RBC Distribution Width 12.8 % (11.5-14.5); Red Blood Cell (RBC) Count 5.41 mill/uL (4.70-6.10); White Blood Cell (WBC) Count 29.9 thou/uL (4.8-10.8)
[2020-03-20] MEDS ORDERED: Sodium Bicarb 50 MEQ/50 ML Abboject 8.4% SYRINGE ONE (03:39)
[2020-03-20] MEDS ORDERED: EPINEPHrine 1 MG/10 ML Abboject SYRINGE ONE (03:39)
[2020-03-20 03:43] LABS: Troponin I 2.646 ng/mL (< 0.028)
[2020-03-20 03:54] LABS: Magnesium 2.9 mg/dL (1.6-2.6); Uric Acid 7.5 mg/dL (3.5-7.2)
[2020-03-20] MEDS ORDERED: Vancomycin 1.5 GRAM/300 ML BAG 1.5 GM in Premix Bag 1 BAG IVPB SCH (04:00)
[2020-03-20 04:45] LABS: Actual Bicarbonate (HCO3a) 17.2 mEq/L (22-28); Base Excess (BEa) -13.7 mEq/L (-2.0 to +3.0); CO2 Tension 59.7 mmHg (35.0-45.0); Hemoglobin (Hb) 17.5 g/dL (14.0-18.0)
[2020-03-20 04:51] LABS: pH, Arterial 7.08 (7.35-7.45)
[2020-03-20] MEDS: Potassium Chloride 40 MEQ in Sodium Chloride 0.9% 250 ML 250 ML IVPB SCH ×2 (04:53→08:03)
[2020-03-20] MEDS: HumaLOG 300 UNITS/3 ML VIAL SC PRN ×2 (04:59→09:04)
[2020-03-20] MEDS ORDERED: Amiodarone 450 MG, Admixture Fee 1 EACH in Dextrose 5% in Water 250 ML IVPB SCH (05:00)
[2020-03-20] MEDS: Propofol 1,000 MG/100 ML VIAL IV PRN ×2 (05:23→10:38)
[2020-03-20] MEDS: Piperacillin/Tazobactam 3.375 GM in Sodium Chloride 0.9% 100 ML IVPB SCH ×2 (05:25→08:30)
[2020-03-20 05:57] LABS: Troponin I 8.642 ng/mL (< 0.028)
[2020-03-20] MEDS ORDERED: DOBUTamine 500 mg/250 ml 250 ML ONE (07:03)
--- NOTE | 2020-03-20 07:22 | PDOC.BPN ---
<Sonia Pollard - Last Filed: 03/20/20 07:22> - Brief Progress Note CENTRAL LINE PROCEDURE NOTE INDICATION: Code Blue PROCEDURE SUBASSEMBLER: Sonia Pollard MD PGY1, Alexander Kay DO PGY3 ATTENDING PHYSICIAN: Raul Cummings in Attendance Ultrasound Used: Yes CONSENT: Not indicated given code situation PROCEDURE SUMMARY: My hands were washed immediately prior to the procedure. I wore mask with protective eyewear, sterile gown and sterile gloves throughout the procedure. The RIGHT inguinal region was prepped using chlorhexidine scrub and draped in sterile fashion using a full drape and sterile probe cover employed. The femoral pulse was identified. Anesthesia was achieved using 1% lidocaine. Palpating the femoral pulse throughout the procedure, the introducer needle was inserted medial to the femoral artery, inferior to the inguinal crease and into the femoral vein. Venous blood was withdrawn. The syringe was removed and a guidewire was advanced into the introducer needle. A small incision was made at the skin surface with a scalpel and the introducer needle was exchanged for a dilator over the guidewire. After appropriate dilation was obtained, the dilator was exchanged over the wire for a triple lumen central venous catheter. The wire was removed and the catheter was sutured in place. A sterile dressing was placed over the catheter at the insertion site. The patient tolerated the procedure without any hemodynamic compromise. At time of procedure completion, all ports aspirated and flushed properly. Estimated blood loss is 5mL. <Raul Cummings - Last Filed: 03/20/20 11:04> Addendum - Attending - Attending Attestation Date/Time: 03/20/20 1103 I was present for the entire procedure. Patient critically ill following placement with wide complex tachycardia @ 150/min. Hospitalist managing.
[2020-03-20] MEDS ORDERED: Norepinephrine 4 MG/4 ML VIAL ONE (07:40)
[2020-03-20] MEDS ORDERED: Norepinephrine 8 MG/0.9% NS 250 ML ONE (07:41)
[2020-03-20] MEDS ORDERED: Lorazepam 2 MG/ML VIAL ONE (07:44)
[2020-03-20] MEDS ORDERED: DOBUTamine 500 mg/250 ml 250 ML IVPB SCH (07:45)
[2020-03-20 08:00] VITALS: TEMP 100.2
[2020-03-20] MEDS ORDERED: Norepinephrine 8 MG/0.9% NS 250 ML IVPB SCH (08:15)
--- NOTE | 2020-03-20 08:25 | RAD ---
CHEST 1 VIEW: Date: 03/20/2020 INDICATION: History of ET tube check. COMPARISON: Prior exam dated 03/19/2020. IMPRESSION: Bilateral air space disease persists. ET tube tip is seen at the level of thoracic inlet. Gastric cat heter projects beyond the field of view and below the left hemidiaphragm. No pneumothorax is evident. Costophrenic angles are excluded. POS: BH
[2020-03-20 08:27] LABS: Acetaminophen Less than 6.0 mcg/mL (10.0-30.0); Alcohol 144 mg/dL (Less than 10); Salicylate Less than 8.0 mg/dL (15.0-30.0)
[2020-03-20 08:32] LABS: Anion Gap 28 mmol/L (10-20); BUN (Urea Nitrogen) 18 mg/dL (8.9-20.6); Calc. Creatinine Clearance 57 mL/min (70-130); Calcium 7.8 mg/dL (7.8-10.44); Carbon Dioxide 16 mmol/L (22-29); Chloride 105 mmol/L (98-107); Glucose 279 mg/dL (70-105); Potassium 4.9 mmol/L (3.5-5.1); Sodium 144 mmol/L (136-145)
[2020-03-20] MEDS ORDERED: Insulin Glargine 20 UNITS in Pre-Filled Syringe 1 EACH SC SCH (09:00)
[2020-03-20] MEDS ORDERED: Enoxaparin Sodium 40 MG/0.4 ML SYRINGE SC SCH (09:00)
[2020-03-20] MEDS ORDERED: Famotidine/PF 20 mg/2ml Vial SLOW IVP SCH (09:00)
[2020-03-20] MEDS ORDERED: Sodium Bicarbonate 100 MEQ in Sodium Chloride 0.45% 1,000 ML IV SCH (09:15)
[2020-03-20] MEDS ORDERED: Vecuronium 10 MG VIAL ONE (10:55)
[2020-03-20 11:36] LABS: Amphetamine Not Detected (NotDetected); Barbiturates Screen Not Detected (NotDetected); Benzodiazepine Screen Not Detected (NotDetected); Cocaine Metabolite Screen Not Detected (NotDetected); Medtox Control Line Valid? VALID (VALID); Medtox Reader # READER 1; Methadone Not Detected (NotDetected); Methamphetamine Not Detected (NotDetected); Opiate Screen Not Detected (NotDetected); Oxycodone Screen Not Detected (NotDetected); Phencyclidine (PCP) Not Detected (NotDetected); THC/Cannabinoid Screen Not Detected (NotDetected); Tricyclic Screen Not Detected (NotDetected)
--- NOTE | 2020-03-20 14:08 | CON ---
DATE OF CONSULTATION: 03/20/2020 HISTORY OF PRESENT ILLNESS: Yaron Keller is a 44-year-old male with a history of cardiomyopathy. Obtained a LifeVest in the past. The defibrillator was tentatively scheduled for next week I am told. He presented after a cardiac arrest at home. He had prolonged CPR multiple times prior to and after admission. I evaluated the patient in the critical care unit. Cardiology was not consulted to my surprise. Family was at the bedside. PAST MEDICAL HISTORY: Remarkable for: 1. Diabetes. 2. Hypertension. 3. Ejection fraction of 20%. FAMILY HISTORY: Negative for lung disease in early age. SOCIAL HISTORY: It is unknown whether he is a smoker or drinker. REVIEW OF SYSTEMS: Not obtainable. PHYSICAL EXAMINATION: GENERAL: He is on multiple pressors. 100% oxygen with 100% O2 saturation. He had myoclonic jerking. HEENT: Pupils nonreactive. Sclerae are anicteric. LUNGS: Remarkable for equal breath sounds. HEART: Regular rhythm. S1 and S2 were normal. He had a faint grade 2/6 systolic murmur. ABDOMEN: Soft and nontender without guarding or rigidity. EXTREMITIES: Without asymmetry or edema. DIAGNOSTIC STUDIES: Chest x-ray was reviewed. LABORATORY DATA: White count was 29, hemoglobin 17, platelets 169. Sodium 144, potassium 4.9, chloride 105, bicarb 16, BUN 18, creatinine 2.9. IMPRESSION: Cardiogenic shock, status post cardiac arrest with an anoxic brain injury. I had a long meeting with his sister. I discussed end-of-life issues. I have discussed the high likelihood that he had a brain injury that he could not recover from and also a cardiac process that he could not recover from. She wanted to talk to family about code status. PLAN: After my evaluation of him and my long meeting with his sister, I left the room, with approximately 30 to 45 minutes later he coded. Chest compressions were initiated and the sister said stop. They had talked to another family member about homes locally, cremation versus burial etc, and the body will be released to a home. The family does not want an autopsy per my discussion. Critical care time 90 min. Job ID: [id number] [facility]
--- NOTE | 2020-03-20 18:27 | DIS ---
DATE OF ADMISSION: 03/20/2020 DATE OF DISCHARGE: 03/20/2020 SUMMARY: DATE OF : 03/20/2020 at 11:45 a.m. PRIMARY CAUSE OF : Cardiogenic shock with cardiac arrest, duration one day. CHF exacerbation with systolic dysfunction, one day. Acute kidney injury, one day. SECONDARY CAUSE OF : Diabetes mellitus type 2, noncompliance. BRIEF COURSE DURING HOSPITALIZATION: The patient apparently had cardiac arrest while he was returning to his hotel room. He had about 2 to 3 minutes of CPR from his sister who in turn called EMS and EMS resumed CPR for nearly 30 minutes. After arriving in the emergency room, the patient had another 30 minutes of CPR and was stabilized and transferred to ICU. On arrival in ICU, the patient had another 3 minutes of CPR done. He was on multiple pressors including epinephrine drip, dobutamine drip, Levophed drip with systolic blood pressures in the 80s. Mr. Yaron Keller has known history of CHF with ejection fraction of around 15%. He was apparently on a LifeVest and was noncompliant with it. On arrival, he was also found to have had acute kidney injury with severe respiratory and metabolic acidosis with pH of around 7.06 on arrival. He was given multiple doses of bicarb along with changes in vent settings, none of which seemed to have helped him. Multiple discussions were held by me and Dr. Rabago, live ammunition inspector with the patient's sister and girlfriend at bedside. They were contemplating DNR with hospice, by which time the patient was coding for the 4th time and resuscitative measures were being taken. The family soon stopped resuscitation and did not want to proceed and the patient was declared diseased at 11:45 a.m. Multiple family members were at bedside witnessing the demise. His body will be released to home per hospital protocol. Job ID: [id number]
[2020-03-20] MEDS ORDERED: FLU VACC QS2020-21(6MOS UP)/PF 60 MCG/0.5 ML SYRINGE IM ONE (21:00)
--- NOTE | 2020-03-23 09:45 | PQF ---
CLINICAL DOCUMENTATION CLARIFICATION FORM: Dear : Jackie Tate Date / Time: 03/23/2020 Please exercise your independent, professional judgment in responding to the clarification form. Clinical indicators are provided on the bottom of this form for your review Please check appropriate box(es) to clarify if the following diagnosis has been ruled in our ruled out: Sepsis [ ] Ruled in diagnosis [ ] Continue to treat [ ] Resolved [ ] Ruled out diagnosis [ ] Improving [ ] Cannot rule out diagnosis [ ] Other diagnosis [ x ] Unable to determine In addition, please specify: Present on Admission (POA): [ ] Yes [ ] No [ ] Unable to determine To be completed by CDI/Coding staff for physician review: Present Clinical Indicators - Signs / Symptoms / Labs Results and Location in Medical Record [ x ] BP started to trend down, started on gentle IVF for superimposed presumed aspiration pneumonia with sepsis H and P [ x ] Leukocytosis with elevated lactic acid rule out sepsis. Start empiric Zosyn. H and P [ x ] Respiratory rates were 20, 22, 26, 33 and 32. Pulse rates were 96, 99, 100,101, 113 and 102 ED provider notes [ x ] WBCs were 21.0 and 29.9 Laboratory [ x ] Lactic acid 12.3 Laboratory Present Risk Factors Results and Location in Medical Record [ x ] Aspiration pneumonia, acute respiratory failure, acute renal failure, cardiogenic shock H and P Present Treatments Results and Location in Medical Record [ x ] IV Zosyn 03/20/20 Medications [ x ] IV fluids 03/20/20 Medications [ x ] IV Levophed 03/20/20 Medications [ x ] Daily CBCs Medications CDS/Mmd Unit Teacher Signature: [email or web address] Phone #: Date/Time: 03/23/2020 This is a permanent part of the Medical Record [facility]
== END 2020-03-20 14:36 | disposition expired | DRG 291 ==
LOC: ERS 23:20 → CCU 03-20 01:26
PROVIDERS: ADMIT Internal Medicine; ATTEND Internal Medicine
PROC: 0BH17EZ Insertion of Endotracheal Airway into Trachea, Via Natural or Artificial Opening (ICD-10-PCS; principal; 2020-03-20)
PROC: 5A1935Z Respiratory Ventilation, Less than 24 Consecutive Hours (ICD-10-PCS; 2020-03-20)
PROC: 06HY33Z Insertion of Infusion Device into Lower Vein, Percutaneous Approach (ICD-10-PCS; 2020-03-20)
PROC: 5A12012 Performance of Cardiac Output, Single, Manual (ICD-10-PCS; 2020-03-20)
PROC: 3E033XZ Introduction of Vasopressor into Peripheral Vein, Percutaneous Approach (ICD-10-PCS; 2020-03-20)
PROC: 5A2204Z Restoration of Cardiac Rhythm, Single (ICD-10-PCS; 2020-03-20)
PROC: 0D9670Z Drainage of Stomach with Drainage Device, Via Natural or Artificial Opening (ICD-10-PCS; 2020-03-20)
DX: I11.0 Hypertensive heart disease with heart failure (principal); J96.00 Acute respiratory failure, unspecified whether with hypoxia or hypercapnia; J69.0 Pneumonitis due to inhalation of food and vomit; I47.2 Ventricular tachycardia; N17.9 Acute kidney failure, unspecified; G93.1 Anoxic brain damage, not elsewhere classified; E87.4 Mixed disorder of acid-base balance; I50.23 Acute on chronic systolic (congestive) heart failure; E87.6 Hypokalemia; Z20.822 Contact with and (suspected) exposure to COVID-19; F10.10 Alcohol abuse, uncomplicated; T50.2X5A Adverse effect of carbonic-anhydrase inhibitors, benzothiadiazides and other diuretics, initial encounter; E11.9 Type 2 diabetes mellitus without complications; I46.2 Cardiac arrest due to underlying cardiac condition; R57.0 Cardiogenic shock; Z79.82 Long term (current) use of aspirin; Z91.19 Patient's noncompliance with other medical treatment and regimen; F17.210 Nicotine dependence, cigarettes, uncomplicated; Z79.899 Other long term (current) drug therapy; Z78.1 Physical restraint status; I49.01 Ventricular fibrillation
CPT/HCPCS: 31500; 36415; 36416; 36600; 51702; 71045; 80048; 80053; 80306; 80307; 82550; 82553; 82570; 82805; 83605; 83735; 83880; 84300; 84443; 84484; 84550; 85007; 85025; 85027; 85610; 85730; 92950; 93005; 94002; 94760; 96365; 96366; 96368; 96374; 96375; 99292; J0171; J0282; J1250; J1650; J1815; J1940; J2060; J2543; J2704; J3010; J3370; J3475; J3480; J3490; J7050; J7070; S0028; U0002